=== PATIENT | male | born 1940 | race Caucasian/White ===

== ENCOUNTER 2017-12-30 14:17 | Outpatient (CLI) | payer MEDICARE ==
--- NOTE | 2017-12-30 16:30 | XRAY Report ---
THREE VIEW BILATERAL FEET: 12/30/2017 CLINICAL INDICATION: Bilateral pain. FINDINGS: AP, lateral, and oblique views of the bilateral feet demonstrate bilateral plantar and posterior calcaneal spurring. Mild bilateral hallux valgus is present, with mild osteoarthritic changes of the first metatarsophalangeal joints and interphalangeal joints. There is no evidence of acute fracture or dislocation. IMPRESSION: OSTEOARTHRITIC CHANGES BILATERALLY. TD: 12/30/2017 16:28
== END 2017-12-30 14:18 | disposition home or self-care (01) ==
LOC: DI 14:17
PROVIDERS: ATTEND Podiatrist
DX: M19.072 Primary osteoarthritis, left ankle and foot (principal); M19.071 Primary osteoarthritis, right ankle and foot